=== PATIENT | male | born 1990 | race African-American/Black ===

== ENCOUNTER 2016-07-27 23:59 | Emergency (ER) | payer SELFPAY ==
[~2016-07-27 23:59] MED LIST: CIPRO PO; CIPRO250 M1 PO; IBUPROFEN800 MG PO; LEVAQUIN PO; METRONIDAZOLE375 MG PO
== END 2016-07-28 01:20 | disposition home or self-care (01) ==
LOC: CED 23:59
DX: K02.9 Dental caries, unspecified (principal)
CPT/HCPCS: 99282